=== PATIENT | female | born 1965 | race Caucasian/White ===

== ENCOUNTER 2016-09-21 05:59 | Inpatient (IN) | payer OTHER ==
--- NOTE | 2016-09-10 15:04 | PCM.ANEPRE ---
Anesthesia Pre-Op Review Reason for Review: SURGEON'S REQUEST "BMI>45;S/P RT UPPER LOBE PART. LOBECTOMY W/ RECENT PFT" Anesthesia Recommendations: Proceed with Procedure Additional Comments high BMI for two level ACDF. History of lobectomy FEV1 post over 3 liters( hard to read) STOP BANG 11/22 Alfonso Enriquez MD Sep 10, 2016 15:04
--- NOTE | 2016-09-20 12:04 | PCM.HPSURG ---
Subjective Date of Service: Sep 06, 2016 Referring Provider: Admitting Physician: Primary Care Physician: Nopcp Attending Physician: Beau Leon MD Chief Complaint SEE BELOW History of Present Illness Patient: Natalie Bosch Date of : 1965 Visit Type: Pre Op Visit Date: 09/06/2016 10:45 AM This 51 year old female presents for Preop C5-7 ACDF Carbon or Allograft, OsteoAMP and & Plate. History of Present Illness: 1. Preop C5-7 ACDF Carbon or Allograft, OsteoAMP, & Plate Natalie Bosch is a 51 year old female referred by Primary Care Provider (PCP ) Dr. Ping Hammer M.D. who presents today's date 09/06/2016 for a preoperative type of appointment concerning the decision for surgery involving C5-6 & C6-7 anterior cervical discectomy and fusion with allograft bone or carbon cage graft, OsteoAmp, & anterior cervical plating from C5-7 secondary to a diagnosis of cervical radiculopathy with related complaints of severe, intractable, and debilitating neck pain radiating into the left upper extremity of numbness, & paresthesias. Patient last presented for evaluation with Dr. Beau Leon M.D. on 2016 complaining of persistent neck left scapula and arm pain. Patient's symptoms started about 5 months ago and has continued to persist despite a long period of conservative treatment including physical therapy. Patient's pain will radiate into the scapula into the biceps and forearm but not extending into the fingers. She denies any symptoms on the right side. She feels weaker on the left side but is not been progressive. She has continued to work despite the pain and also has a diagnosis of left carpal tunnel syndrome. She has not had a recent changes in bladder or bowel dysfunction or difficulty walking. Recent MRI scan demonstrates evidence of disc herniation at both C5-6 and C6-7 with associated severe foraminal stenosis. About a week ago patient also began to have increasing lower back and right leg pain which radiates into the anterior thigh. She is here today for evaluation regarding her current symptoms. Our clinic is in network for the patient. According to Dr. Beau Leon M.D. the patient has left C6 & C7 radiculopathy secondary to herniated disc & osseous foraminal narrowing at C5-6 & C6-7 which has failed extensive conservative treatment recommending neurosurgical cervical decompression, fusion, & instrumented stabilization. Dr. Leon & the patient discussed all the risks and benefits associated with the procedure as well as reasonable expectations with regards to surgical outcomes & the patient elected to proceed with surgery as planned. 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 The patient's related complaints have been a serious detriment to their happiness and activities of daily living. Having failed conservative treatment the patient presents today for their decision for surgery appointment involving C5-6 & C6-7 anterior cervical discectomy and fusion with allograft bone or carbon cage graft, OsteoAmp, & anterior cervical plating from C5-7 for treatment of cervical radiculopathy; related to severe, intractable, and debilitating neck pain radiating to left upper extremity with numbness, & paresthesias. The procedure is scheduled to be performed by Dr. Beau Leon M.D. on 09/21/2016. ANESTHESIA NOTE: We are requesting anesthesia preoperative consultation secondary to BMI > 45 with comorbidities including but not limited to status post right partial upper lobectomy & benign tumor removal with recent PFT for review. Medical/Surgical/Interim History Reviewed, no change. Last detailed document date:09/06/2016. Family History: Reviewed, no changes. Last detailed document date:09/06/2016. Social History (Reviewed, updated) 09/06/2016 Tobacco use reviewed. Preferred language is Yi. 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 Smoking status: Never smoker. Smoking Status Use Status Type Smoking Status Years Used Total Pack Years no/never Never smoker Allergies: Ingredient Reaction Medication Name Comment NO KNOWN ALLERGIES Reviewed, no changes. Review of Systems System Neg/Pos Details Neuro Positive Headache. MS Positive Myalgia, Neck stiffness. Negative Dysuria, urge incontinence and urinary incontinence. ENMT Negative Hearing loss. Arnulfo/Lymph Negative Blood clots. Psych Negative Anxiety and depression. Eyes Negative Double vision and vision loss. MS Negative Back pain, bone/joint symptoms and muscle weakness. Neuro Negative Dizziness and seizures. Integumentary Negative Mrsa and rash. Endocrine Negative Weight gain and weight loss. Respiratory Negative Dyspnea, apnea and wheezing. Cardio Negative Chest pain, irregular heartbeat/palpitations, leg swelling and pacemaker. GI Negative Abdominal pain, constipation, diarrhea, nausea and vomiting. Constitutional Negative Chills and fever. Vital Signs Height Time ft in cm Last Measured Height Position % 10:37 AM 5.0 4.75 164.47 08/03/2016 Weight/BSA/BMI Time lb oz kg Context % BMI kg/m2 BSA m2 10:37 AM 278.40 126.280 dressed with shoes 46.68 2.40 Blood Pressure Time BP mm/Hg Position Side Site Method Cuff Size 10:37 AM 142/98 sitting left wrist automatic adult Temperature/Pulse/Respiration Time Temp F Temp C Temp Site Pulse/min Pattern Resp/ min 10:37 AM 97.7 36.5 116 regular Pain Scale Time Pain Score Method 10:37 AM 8/10 Numeric Pain Intensity Scale Measured By Time Measured by 10:37 AM Mauricio Rodgers MA Screening Summary:o Pain is described as 8/10. Evaluated pain score with Numeric Pain Intensity Scale. The following were reviewed: tobacco use, alcohol use and caffeine use Physical Exam Exam Findings Details Comments Gen.: Well-developed well-nourished HEENT: Palpation of the neck reveals evidence of involuntary paraspinous muscle spasm. There is decreased range of motion of the neck. Positive Spurling sign the left. Chest: Clear to percussion and auscultation. Cardiovascular: Regular rate and rhythm Abdomen: Soft nontender with normal bowel sounds. Extremity: 5/5 strength in the upper and lower extremities except for some give way weakness of biceps on the left as compared to the right. Patient has numbness in both the C6 & C7 distribution. There is diminished biceps and triceps. Some left-sided screw of the right. Radiographic imaging:Patient's MRI scan shows some multilevel degenerative disks. There is a right posterolateral disc protrusion at C3-4 as well as C4-5 with associated foraminal narrowing C5-6 and C6-7 there is moderate sized broad- based posterior disc bulge with superimposed left paracentral disc protrusion which extends into the left C6C& C7 neural foramen Assessment/Plan # Detail Type Description 1. Assessment Cervical radiculopathy (M54.12). 2. Assessment Preoperative examination (Z01.818). Patient Plan We including your Attending Surgeon have discussed the risks and benefits associated your scheduled procedure which you have verbally acknowledged understanding including but not limited to the possibility of an outcome that we are unable to predict or was not mentioned. 1. You are scheduled for a C5-6 & C6-7 anterior cervical discectomy and fusion with allograft bone or carbon cage graft, OsteoAmp, & anterior cervical plating from C5-[address] Beau Leon M.D. at [facility] on 09/21/2016. 2. Check in time is 6 AM. Also please ignore instructions below if told otherwise by your preadmission nurse or if you do not take the medications listed below. 3. Nothing to eat after midnight the night before surgery. You may take all of your "approved" medications with small sips of water. Remember to take your a.m. hypertension medication if it is a beta forest and ends in "olol. Otherwise ask your doctor if you need to hold your a.m. hypertension medication. 4. No aspirin, ibuprofen, Naprosyn, or other NSAIDs starting 7 days prior to surgery. 5. Please stop Warfarin/Coumadin or other blood thinners such as Plavix, Aggrenox, or Xarelto 7 days prior to your surgical procedure and follow specific instructions from your prescribing provider. 6. Please stop Lovenox bridging in the morning one day prior to procedure. 7. Please stop Suboxone/Buprenorphine at least 4 days prior to procedure. 8. Go to the hospital today to get her preoperative testing done. Take the order form to the surgery desk on the second floor of the hospital, [facility] (main entrance next to the emergency entrance). I will notify you if there is any test results that require further workup prior to surgery. 9. Follow the instructions you were given today, use the cleansing cloths the night before as well as the morning of her surgery. 10. If you are prescribed inhalers, CPAP or BiPAP machines you use at home bring along with you to the hospital. 11. ONLY If you take medications for Diabetes: If you have an insulin pump continue lowest (typically night-time) basal rate into the a.m. If you do not have a pump check h your a.m. blood sugar and hold insulin if BS less than 100. If you are taking long-acting, intermediate acting (NPH) or 70/30 preparation : Take half on day of procedure. If you are taking ultra long-acting insulin such as glargine, Lantus either at night or in the a.m. continue as scheduled ( including day of surgery). If you take short acting regular insulin (insulin not delivered via pump) discontinue on day of procedure. 12. Please call if you have any questions before your surgery: [phone]. Today's instructions/counseling include(s) Pre-operative instructions given to the patient and or legal appeals representative(s) orally and in writing. 13. Our office will contact you if there are any test results that require further workup prior to surgery. Provider Plan The patient's history and examination as well as radiological findings were reviewed with Dr. Beau Leon M.D. and conveyed the patient in detail. The findings are consistent with cervical radiculopathy and are most likely the cause of the patient's severe, intractable, & debilitating neck pain radiating to the left upper extremity with numbness, & paresthesias. The patient has failed extensive conservative treatment for this condition. The treatment options were discussed with the patient. The options include attempt to live with the condition, reattempt conservative treatment, try a pain management intervention / injection or consider a surgical intervention. We are not extremely optimistic that further conservative treatment, pain management intervention and/or injection will adequately resolve the patient's symptoms of severe, intractable, and debilitating neck pain radiating to the left upper extremity with numbness, & paresthesias. Therefore we recommend C5-6 & C6-7 anterior cervical discectomy and fusion with allograft bone or carbon cage graft, OsteoAmp, & anterior cervical plating from C5-7. The patient was provided/offered educational materials pertaining to their diagnosis and the above discussed procedure. We discussed the risks and benefits associated with this surgery. A spine model was used to explain the nature of this type of surgery. The risk of the required anesthesia was also mentioned including but not limited to organ failure such as heart attack, pneumonia and stroke even . The risk of this type of surgery was also mentioned. Including but not limited to an unsuccessful outcome, residual symptoms, odynophagia, dysphasia or sore throat, referred or radiating posterior spinal myofascial inflammatory pain or spasm, post operative instability, instrumentation failure, sensory changes, blood loss, blood clots, wound infection, spinal cord or nerve damage, CSF or lymph leak, damage to neighboring structures such as the recurrent laryngeal nerve, perforation of the esophagus or trachea, pseudoarthrosis, adjacent level disease, contraindication to MRI, Caro's Syndrome, vision loss, voice change, resulting in temporary or permanent dysfunction, even disability, paralysis, and . The recovery of this type of surgery was also mentioned. The chances for improvement of the left upper extremity cervical radiculopathy related symptomatology at one year is 70-80%. The chances of improvement of local mechanical neck pain is 50%. The patient verbalized understanding all the risks and benefits, knowing that it is impossible to predict or guarantee every surgical outcome; and would like to proceed with the above discussed procedure anyways. Surgery is scheduled for 09/21/2016 The standard [facility] preoperative screening tests, medicine restrictions, and logistical protocols apply. Any preoperative testing is within normal limits to undergo the above discussed procedure unless otherwise noted in the medical record. ANESTHESIA NOTE: We are requesting anesthesia preoperative consultation secondary to BMI > 45 with comorbidities including but not limited to status post right partial upper lobectomy & benign tumor removal with recent PFT for review. Medications (added, continued or stopped this visit): Start Date Medication Directions Stop Date buspirone take 1 tablet by oral route 2 times every day Celebrex take 2 capsule by oral route 2 times every day cyclobenzaprine take 1 tablet by oral route every bedtime FISH OIL lansoprazole take 1 capsule by oral route every day before a meal levothyroxine take 1 tablet by oral route every day Lexapro take 1 tablet by oral route every day 08/03/2016 Medrol (Daniel) 4 mg tablets in a dose pack take per package instructions naratriptan take 1 tablet by oral route once may repeat after 4 hours nortriptyline take 3 capsule by oral route every day 09/20/2016 Percocet 10 mg-325 mg tablet take 1 - 2 tablet by oral route every 4 - 6 hours as needed for pain Percocet 5 mg-325 mg tablet take 1 tablet by oral route every 6 hours as needed simvastatin take 1 tablet by oral route every day in the evening sucralfate take 1 tablet by oral route 4 times every day on an empty stomach 1 hour before meals and at bedtime 09/20/2016 Valium 5 mg tablet take 1 - 2 Tablet by oral route every 8 hours as needed for spasm Vitamin D3 zolpidem take 1 tablet by oral route every day at bedtime Counseling/Educational Factors: Counseling / educational factors reviewed. Counseling / educational factors reviewed. This is a visit of 60 minutes. 50 minutes were spent counseling. This document may have been created using voice recognition software or other electronic means and may contain inadvertent vp treasurer errors. Provider: Richmond CHAHAL 09/06/2016 12:57 PM Document generated by: Richmond Gabriel 09/06/2016 12:57 PM CC Providers: Ping Hammer [facility] [address] [place] [id number] , [place] [address] w mily Crane s r c l i n i c s . o r g NDUMS APPEAR ON FOLLOWING PAGE Addendum(Richmond Gabriel) 09/20/2016 11:59:47 AM Patient had a positive urinalysis & culture for strep ordered course of amoxicillin will repeat urinalysis culture if indicated day of surgery. Allergy Allergies: Uncoded Allergies: COUGH SYRUP (Allergy, Unknown, UNKNOWN, 09/09/16) Social History Hx Alcohol Use: No Hx Substance Use: No PMH HEENT History History of ENT Problems?: Yes HEENT History: Positive for:: Dysphagia Sinus Problem (S/P SINUS SURGERY) Cardiovascular History History of Heart Problems?: Yes Cardiovascular History: Denies:: Heart Murmur Hypertension (HYPERLIPIDEMIA) Respiratory History of Respiratory Problem: Yes Respiratory History: Positive for:: Chest Surgery (S/P RT UPPER PARTIAL LOBECTOMY FOR BENIGN TUMOR) Dyspnea (FREITAS,SOB PFT'S 08/2016 ESSENTIALLY WNL) Denies:: Use of C-PAP Machine Neurological History Hx Neurologic Problems?: Yes Neurological History: Positive for:: Headaches Other Neurological History: HX CHRONIC PAIN MANAGEMENT Gastrointestinal History HX of GI Problems?: Yes Gastrointestinal History: Positive for:: Gastroesphageal Reflux (HX PUD) Other GI Pertinent History: OBESITY C/OF DIARRHEA/CONSTIPATION W/ HX OF BOWEL INCONTINENCE Genitourinary History Hx of Gu Problems?: Yes Genitourinary History: Positive for: Kidney Stones (HX OF) Female/Male History Reproductive History Female: Denies: Currently ? (S/P D&C X3,ABLATION) Skin History Skin History: Denies:: History Skin Disorders? Pressure Ulcers Musculoskeletal History Hx Musculoskeletal Problems?: Yes Musculoskeletal History: Denies:: Back Injury (C/OF NECK & BACK PAIN) Psycho Social History Hx of Psycho/Social Problems?: Yes Psycho Social History: Positive for:: Anxiety Hx Depression Other History Hx Any Other Health Problems?: Yes Other History: Positive for:: Thyroid Disease Denies:: Cancer Endocrine Disease Hospitalization Diabetes: No Social History Hx Alcohol Use: NoHx Substance Use: No Richmond Gabriel PA-C Sep 20, 2016 12:04
[2016-09-21] VITALS (17 sets, daily range): BP systolic 126–161; BP diastolic 43–96; PULSE 110–119; RESP 10–18; O2SAT 91–99
[~2016-09-21] VITALS: Ht 164.5 cm; Wt 126.1 kg
[2016-09-21] MEDS: Lactated Ringer's 1,000 ML IV SCH ×5 (05:00→19:47)
[~2016-09-21 05:59] MED LIST: AMOX500C2 PO; BUSP10TA2 PO; CELE400C PO; CHOL100045 PO; CYCL10TA9 PO; ESCI20TA PO; LANS30CA PO; LEVO125T6 PO; METH4TAB PO; NAPR500T5 PO; NARA2.5T2 PO; NORT75CA PO; OMEG-38 PO; OXYC-466 PO; SIMV20TA4 PO; ZLP5T PO
[2016-09-21] MEDS ORDERED: Bacitracin 50,000 unit Inj IRRIGATION ONE ×2 (06:00→08:26)
[2016-09-21] MEDS ORDERED: CeFAZolin Inj 3 GM in IV Premix IV ONE (06:00)
[2016-09-21] MEDS ORDERED: Thrombin Powder 5,000 Unit TOPICAL ONE ×2 (06:00→08:26)
[2016-09-21] MEDS ORDERED: OXYC1TAB24 PO (06:43)
[2016-09-21] MEDS ORDERED: HYDR-4003 PO (06:44)
[2016-09-21] MEDS ORDERED: Lactated Ringer's 1,000 ML IV SCH (07:31)
[2016-09-21] MEDS ORDERED: Lactated Ringer's 500 ML IV PRN (07:31)
--- NOTE | 2016-09-21 07:31 | PCM.HPANE ---
Patient Data Date of Service: Sep 21, 2016 (0725) Surgeon Admitting Provider: Attending Provider:Beau Leon MD Primary Care Physician:Nopduane Other Provider:Joe Ly Anesthesia Reason for Visit Cervical Radiculopathy Ht/WT & BMI Height (Feet): 5 Height (Inches): 4.75 Weight (Kilograms): 126.1 Body Mass Index 46.00 Allergies Uncoded Allergies: COUGH SYRUP (Allergy, Severe, ITCHING, 09/21/16) Past Anesthesia History Anesthesia History: Positive for:: Anesthesia Reactions (PONV), Denies:: Malignant Hyperthermia Diabetes History Hx Diabetes?: No Current Bedside Blood Glucose: 110 MRSA MRSA: No Medications Home Meds Incl Beta Tone: No Reported Medications Hydrocodone-Acetaminophen 5-325 mg 1 Each Tablet1-2 Mg PO PRN #15 09/21/16 Naproxen 500 Mg Tablet.dr500 Mg PO BID PRN For Pain Ref 0 09/09/16 Zolpidem (Ambien)5 Mg Tablet5-10 Mg PO HS PRN For Insomnia Ref 0 09/09/16 Cholecalciferol (Vitamin D3) (Vitamin D)1,000 Unit Cmervsw33,000 Unit PO DAILY # 1 BOTTLE Ref 0 09/09/16 Simvastatin 20 Mg Mfprwh63 Mg PO HS Ref 0 09/09/16 Nortriptyline 75 Mg Oayjrtk50 Mg PO HS PRN PRN 09/09/16 Naratriptan 2.5 Mg Tablet2.5 Mg PO PRN MR IN 4H PRN 09/09/16 Methylprednisolone (Medrol)4 Mg Tablet4 Mg PO VARYING DOSES PRN DIRECTED Ref 0 09/09/16 Escitalopram Oxalate (Lexapro)20 Mg Cyltvf07 Mg PO DAILY 30 Days Ref 0 09/09/16 Levothyroxine 125 Mcg Jmtzai579 Mcg PO DAILY For Thyroid Replacement Ref 0 09/09/16 Lansoprazole 30 Mg Capsule.dr30 Mg PO BID #30 CAPSULE Ref 0 09/09/16 Carson-3/Dha/Epa/Fish Oil (Fish Oil 1,000 mg Softgel)1 Each Capsule6 Each PO DAILY 09/09/16 oxyCODONE-Acetaminophen 10-325 mg 1 Each Tablet1-2 Tablet PO Q4-6H PRN For Pain Ref 0 09/09/16 Cyclobenzaprine 10 Mg Ticvgg27 Mg PO DAILY PRN Spasm Ref 0 09/09/16 Celecoxib (Celebrex)400 Mg Iroikmn492 Mg PO BID #30 CAPSULE Ref 0 09/09/16 Buspirone 10 Mg Geovlc59 Mg PO BID Ref 0 09/09/16 Amoxicillin 500 Mg Ojonodu566 Mg PO TID Ref 0 09/09/16 Discontinued Reported Medications oxyCODONE-Acetaminophen 5-325 mg 1 Each Tablet1-2 Mg PO PRN #12 09/21/16 History History of ENT Problems?: Yes HEENT History: Positive for:: Dysphagia Sinus Problem (S/P SINUS SURGERY) Hx of Heart Problems?: Yes Cardiovascular History: Denies:: Heart Murmur Hypertension (HYPERLIPIDEMIA) Hx of Respiratory Problem?: Yes Respiratory History: Positive for:: Chest Surgery (S/P RT UPPER PARTIAL LOBECTOMY FOR BENIGN TUMOR) Dyspnea (FREITAS,SOB PFT'S 08/2016 ESSENTIALLY WNL) Denies:: Use of C-PAP Machine Hx Neurologic Problems?: Yes Neurological History: Positive for:: Headaches Other Neurological Pertinent: HX CHRONIC PAIN MANAGEMENT Hx of GI Problems?: Yes Gastrointestinal History: Positive for:: Gastroesphageal Reflux (HX PUD) Other GI Pertinent History: OBESITY C/OF DIARRHEA/CONSTIPATION W/ HX OF BOWEL INCONTINENCE Hx of Problems?: Yes Genitourinary History: Positive for:: Kidney Stones (HX OF) Female Hx: Denies:: Currently (POST MENOPAUSE) Skin History: Denies:: History Skin Disorders? Pressure Ulcers Hx Musculoskeletal Problems?: Yes Musculoskeletal History: Denies:: Back Injury (C/OF NECK & BACK PAIN) Hx of Psycho/Social Problems?: Yes Psycho Social History: Positive for:: Anxiety Hx Depression Hx Surgeries?: Yes (RT UPPER PARTIAL LOBECTOMY,D&C X3,ABLATION,SINUS SURGERY) Hx Any Other Health Problems?: Yes Other History: Positive for:: Thyroid Disease Denies:: Cancer Endocrine Disease Hospitalization Hx Diabetes: NoBedside Blood Glucose: 110 Hx Alcohol Use: NoHx Substance Use: NoHave You Smoked inLast 12 mo: No Stop/Bang S-Snoring: Do You Snore Loudly: No T-Tired: feel tired, fatigued: Yes O-Obsered: Observed not breath: No P-Blood Pressure: treated: Yes B- Body Mass Index > 35 kg/m2: Yes A- Age over 50: Yes N- Neck Large Circumference: Yes G- Gender Male: No CHARAN Total Score: 5 CHARAN Risk Assessment: High Risk, =/>3 Yes Risk Assessment Category Category 1A: Patient has history of documented sleep apnea, and HAS NOT received any narcotic, sedative or anesthesia administration during this stay. Category 1B: Patient has history of documented sleep apnea, and HAS received any narcotic , sedative or anesthesia administration during this stay Category 2: Patient has SUSPECTED Obstructive Sleep Apnea, and HAS received any narcotic , sedative or anesthesia administration during this stay. Category 3: Patient has SUSPECTED Obstructive Sleep Apnea and HAS NOT received narcotic, sedative or anesthesia administration during this stay. Category 4: Outpatient in Procedural Areas with known sleep apnea or who screen positive for High Risk via the STOP/BANG questionnaire. Exam Exam Vital Signs Vital Signs Date Time Temp Pulse Resp B/P Pulse Ox O2 Delivery O2 Flow Rate FiO2 09/21/16 06:25 36.5 111 18 156/77 95 Room Air General Appearance: Alert, Oriented X3, Cooperative HEENT/AIRWAY: MP 1 Lungs: Clear to Auscultation Heart: Exam Unremarkable Meds/Labs/Diagnostics Admission Meds Current Medications Lactated Ringer's (Lr) 1,000 ml @ 10 mls/hr Q24H IV Last administered on t 06:21; Start 09/21/16 at 05:00; Stop 09/25/16 at 08:59 Bedside Blood Glucose: 110 Plan Impression Patient chart reviewed, patient interviewed and anesthestic plan with risks, benefits, and alternatives discussed, and informed consent obtained. NPO Status: 2200 09/20/16 ASA Physical Status: ASA2 Mod Systemic Disease Anesthetic Plan: GA Bene/Risks/Altern/Consents: Yes HP Complete Prior to Induction: Yes Alexander Sprague MD Sep 21, 2016 07:31
[2016-09-21] MEDS ORDERED: MetoCLOpramide 5 mg/mL 2 mL Inj IVPUSH PRN (07:35)
[2016-09-21] MEDS ORDERED: EPHEDrine Sulfate 50 mg/mL Inj IVPUSH PRN (07:35)
[2016-09-21] MEDS ORDERED: Phenylephrine 10,000 mCg/mL Inj IVPUSH PRN (07:35)
[2016-09-21] MEDS ORDERED: Dexamethasone 4 mg/mL Inj IVPUSH PRN (07:35)
[2016-09-21] MEDS ORDERED: Ondansetron 2 mg/mL 2 mL Inj IVPUSH PRN ×2 (07:35→11:15)
[2016-09-21 08:22] LABS: APPEARANCE,URINE HAZY (CLEAR,HAZY); COLOR,URINE STRAW (YELLOW); OCCULT BLOOD,URINE NEGATIVE (NEGATIVE); PH,URINE 7.5 (5.0-8.0); UROBILINOGEN,URINE NORMAL (NORMAL)
[2016-09-21] MEDS ORDERED: Gelatin Sponge 12-7 MM TOPICAL ONE (08:26)
[2016-09-21] MEDS ORDERED: Lactated Ringer's 1,000 ML IV ONE (10:47)
--- NOTE | 2016-09-21 11:08 | PCM.ANEP1 ---
Post Anesthesia Phase 1 PACU Phase 1 Assessment Date of Service: Sep 21, 2016 (0725) Vital Signs 36.7, 145/71, 16, 99%, 110 Vital Signs Date Time Temp Pulse Resp B/P Pulse Ox O2 Delivery O2 Flow Rate FiO2 09/21/16 06:25 36.5 111 18 156/77 95 Room Air Anesthetic Administered: GA Level of Alertness: Awake, talking FLORES's with Equal Strength: Yes Pain: No Nausea or Vomiting: No Oxygen Delivery: Simple Mask Lungs: Clear to Auscultation Dermatome Level: Full Sensation Summary Uneventful Alexander Jimenez MD Sep 21, 2016 11:08
--- NOTE | 2016-09-21 11:09 | PCM.ANEP2 ---
Post Anesthesia Evaluation ASA/CMS Post Anesthesia VS in Patient's Normal Range?: Yes Resp Stable; Airway Patent?: Yes CV Function & Hydration Stable: Yes Mental Status Recovered?: Yes Pain control Satisfactory?: Yes N/V Control Satisfactory?: Yes Alexander Sprague MD Sep 21, 2016 11:09
[2016-09-21] MEDS ORDERED: Promethazine Inj 12.5 MG in Dextrose 5%-Pha MIX 50 ML IV PRN (11:10)
[2016-09-21] MEDS: fentaNYL-PF 50 mCg/mL 2 mL Inj IVPUSH PRN ×2 (11:10→11:20)
[2016-09-21] MEDS: Dexamethasone 4 mg/mL Inj IVPUSH SCH ×3 (11:10→23:05)
[2016-09-21] MEDS ORDERED: Senna-Docusate 8.6-50 mg Tablet PO PRN (11:15)
[2016-09-21] MEDS ORDERED: Benzocaine (Hurricaine) 20% Unit-Dose Spray MUC_MEMBRM PRN (11:15)
[2016-09-21] MEDS ORDERED: Magnesium Hydroxide 10 mL Oral Concentration PO PRN (11:15)
[2016-09-21] MEDS: Acetaminophen IV 1,000 MG in IV Premix 1 EACH IV SCH ×3 (11:15→23:06)
[2016-09-21] MEDS ORDERED: Polyethylene Glycol (PEG) 17 Gm Powder PO PRN (11:15)
[2016-09-21] MEDS ORDERED: Sodium Biphos-Phos 133 mL Enema RECTAL PRN (11:15)
[2016-09-21] MEDS ORDERED: HYDROmorphone 1 mg/mL Inj IVPUSH PRN (11:15)
[2016-09-21] MEDS: HYDROmorphone 1 mg/mL Inj IVPUSH PRN ×3 (11:30→12:40)
[2016-09-21] MEDS: hydrOXYzine Pamoate 25 mg Capsule PO PRN ×2 (12:15→21:40)
--- NOTE | 2016-09-21 12:31 | DRSVH ---
PROCEDURE: X-RAY CERVICAL SPINE, 1 VIEW INDICATIONS: CERVICAL RADICULOPATHY TECHNIQUE: Single lateral view of the cervical spine acquired. COMPARISON: None. FINDINGS: Bones: Radiopaque surgical probe present projecting over the anterior disc interspace at the C4-C5 le evelyn. Soft tissues: ETT and nasogastric tubes incompletely visualized. IMPRESSION: Localization of the anterior disc interspace at the C4-C5 level. Dr. Leon given results of 0840 hrs. 09/22/1999 1700 Dictated by: Omar Subramanian [facility] Interpreted: Tatyana Carter MD on 09/21/2016 at 12:30 Transcribed by: AMBER on 09/21/2016 at 12:31 Approved by: Tatyana Carter MD, PhD on 09/22/2016 at 11:03
--- NOTE | 2016-09-21 13:23 | OP ---
[address] [address] OPERATIVE REPORT PATIENT: KERI TSAI : 1965 MR#: [id number] ADMIT: 09/21/2016 JOB ID: [id number] DATE OF SURGERY: 09/21/2016 PREOPERATIVE DIAGNOSIS(ES): Persistent left cervical radiculopathy secondary to cervical spondylosis and severe foraminal narrowing, C5-6 and C6-7. POSTOPERATIVE DIAGNOSIS(ES): Persistent left cervical radiculopathy secondary to cervical spondylosis and severe foraminal narrowing, C5-6 and C6-7, with associated cervical spinal stenosis. OPERATIONS/PROCEDURES: 1. Microscopic anterior cervical diskectomy and removal of osteophytosis and bilateral foraminotomy, C5-6 and C6-7. 2. Anterior body fusion, C5-6 and C6-7, using autologous bone graft, OsteoAMP, bone marrow aspiration and carbon cages. 3. Villa cervical plate and screws, C5-C7. 4. Bone marrow aspiration, right superior iliac crest. SURGEON: Beau Leon MD. PRODUCTION LINE WORKER: Richmond Gabriel PA-C. ANESTHESIA: General endotracheal. COMPLICATIONS: None. ESTIMATED BLOOD LOSS: Approximately 50-75 cc. DRAINS: A #10 [place] drain. BLOOD TRANSFUSION: No blood transfusion. FINDINGS AT THE TIME OF SURGERY: There was evidence of osteophytosis and foraminal narrowing more severe on the left than the right at C5-6 and C6-7. Decompression of the central canal, as well as bilateral foraminotomies, performed. After decompression, only 0 angle curette could be placed at each neural foramina. There was no evidence of any CSF leak or neurotomy. Anterior interbody fusion was performed using ramon cages, autologous bone graft, OsteoAMP and bone marrow aspiration. Vlila cervical plates and screws were placed between C5 and C7. Postoperative intraoperative x-rays could not be obtained because of the patient's large body habitus. They will be obtained in X-ray tomorrow. INDICATIONS: This is a 51-year-old female who has been having persistent neck and left arm pain, and numbness and tingling. The patient has undergone a long period of conservative therapy and continued to have persistent symptoms. The patient was subsequently seen for a neurosurgical evaluation. Option of surgery was discussed with the patient after failing conservative measures. The patient subsequently elected to proceed with surgery and admitted at this time for an anterior cervical diskectomy and fusion at C5-6 and C6-7. The indications, risks and complications of the procedure were explained to the patient on her preop visit. She acknowledged understood and wanted to proceed. DESCRIPTION OF OPERATION/PROCEDURE: The patient was identified in the preop area. The C5-6 and C6-7 levels were marked on the patient's anterior chest. The patient's history, examination, medications, allergies and labs were reviewed. She was then taken to the operating room, where she underwent general endotracheal anesthesia without complication. She received 2 g of intravenous Ancef. TESSY was placed on the lower extremities. The patient was placed in a supine position on the operating table with a shoulder roll and gel donut. The patient's extremities were properly padded and positioned. The shoulders were gently taped to her side. Right anterior cervical area, as well as right superior iliac crest region, were then prepped and draped in the usual sterile fashion for anterior cervical diskectomy and fusion at C5-6 and C6-7. After the proper prepping and draping, the appropriate time-out in the OR was performed, confirming the patient's name, date of , planned procedure and presence of appropriate instrumentation. The patient's CHARAN, beta block, diabetic and MRSA status were reviewed. Antibiotic administration, DVT prophylaxis and appropriate imaging on the screen was confirmed. The skilled assistance of the IRIS-Alanis, Richmond Gabriel, was necessary for the successful completion of the case. He was essential for proper postioning, retraction if the esophagus and trachea, as well as general safety of the patient. After time-out was completed, a curvilinear incision was made in the neck on the right side and carried down through the skin and subcutaneous tissue, down to the level of the platysma. The platysma was opened using Bovie cautery, exposing the sternocleidomastoid and strap muscles. There was a large bridging vein. This was carefully dissected, clamped with hemostats and cut. It was then sutured using 0 Vicryl suture. At that point, blunt and sharp dissection between the two muscle groups was undertaken, with subsequent identification of the common carotid artery. Medial dissection was undertaken. The esophagus and trachea were retracted using Appy retractor, exposing the anterior aspect at what was felt to be C5-6 and C6-7. Dissection was carried out superiorly and inferiorly, and bent spinal needles were then placed into the disk space at C4-5 and C5-6 because of the patient's large body habitus. Intraoperative x-rays were obtained, verifying that the upper needle was at the C4-5 level. Position was verified by the radiologist and myself. Once it was verified, subperiosteal dissection of the longus colli muscle was undertaken. The C5-6 and C6-7 levels were marked using a Bovie cautery. A Shadow-Line anterior retraction system was placed, allowing full exposure of the anterior aspect of C5-6 and C6-7. Attention was then directed to the right iliac crest region. A small abhijit incision was made using a 15 blade knife. Bone marrow aspiration was then tapped in the superior iliac crest. Approximately 1 cc of bone marrow aspirate was obtained and mixed with the OsteoAMP. Starting at C5-6, 14 mm vertebral pins were then placed in the vertebral bodies of C5, 6 and 7. Starting at C5-6, this space was maximally distracted. It was then opened using a 15 blade knife. Operating microscope was brought in place. Routine diskectomy was performed using angled curettes, high speed drill and Kerrison rongeur. Autologous bone graft was obtained from the shavings and mixed with the OsteoAMP. Because of the extensive posterior osteophytosis and severe foraminal narrowing left greater than right, bilateral foraminotomies was performed after decompression. Only a 0 angle curette could be placed down each neural foramina. Bolsters were thinned down and removed using angled curettes and Kerrison rongeur. The disk space was sequentially dilated using the trials up to 8 mm. Posterior longitudinal ligament was taken down using curettes and Kerrison rongeur, exposing the thecal sac, which bulged into the disk space. This was then covered with Surgicel gauze after hemostasis was achieved. A #8 rasp was then tapped into the disk space and a #8 cage filled with autologous bone graft of OsteoAMP and bone aspiration was then tapped into the interspace and countersunk at C5-6. Exploration posterior to the graft using a blunt nerve hook revealed good potential space. Distraction instrumentation was removed and placed at C6-7. Diskectomy was performed in a similar fashion, opening the disk space using a 15 blade knife. Routine diskectomy was performed using angled curettes, high speed drills and Kerrison rongeur. Sequential dilation was undertaken until an 8 mm trial was fitted for the disk space. Bilateral foraminotomies were performed, as well as decompression of the central canal. Posterior longitudinal ligament was taken down using curettes and Kerrison rongeur, exposing the thecal sac. This was then covered with Surgicel gauze. A #8 rasp was then tapped in the disk space and a #8 cage filled with autologous bone graft with OsteoAMP and bone marrow aspiration was then tapped into the interspace and countersunk at C6-7. Exploration posterior to the graft revealed good potential space. Distraction instrumentation was removed. Both grafts appeared to be in excellent position. Vertebral pins removed, and bone bleeding was controlled using bone wax. Anterior osteophytes were drilled down and flattened. A Villa cervical plate was then placed between C5 and 7, and secured using 14 mm vertebral screws using the guide and drill. All four screws with excellent purchase. Then, 12 mm screws were placed in the deep body of C6. Once all the screws were placed, they were then tightened using the final ancillary specialist until titanium squeak was heard. The spacers were removed. Careful hemostasis was achieved using 2-point cautery. The wound was irrigated with bacitracin-containing saline. The construct was covered with a large piece of Surgicel gauze. The instrumentation was removed, and re-exploration was undertaken using an Appy retractor. There was no further evidence of any major oozing. A #7 ORVILLE drain was placed deep into the wound and brought out through a separate stab incision and connected to bulb suction. Because of the patient's large body habitus, attempt was not made to do a second intraoperative x-ray since C5-6 and C6-7 could not be visualized. Once the drains were in place, the platysma and subcutaneous layer were then closed using running 3-0 Vicryl suture, and the skin was then closed using 4-0 Vicryl suture in a subcu fashion. The incision was then dried and cleaned. This was followed by Steri-Strips. There was covered with a sterile Telfa dressing and secured using Benzoin and paper tape. A drain dressing was applied. Attention was then paid to the right superior iliac crest region. The small abhijit incision was closed using Benzoin and Steri-Strip. There was then covered with a Telfa dressing and 3-inch OpSite. A 3-inch soft collar was applied. The patient was then transferred to a stretcher, awakened, extubated and taken to the PAR in stable condition. The patient tolerated the procedure well without any major complications. All sponge and needle counts were correct x2. Estimated blood loss probably 50-75 cc.
[2016-09-21] MEDS ORDERED: Ondansetron 2 mg/mL 2 mL Inj ONE ×2 (14:00→18:09)
[2016-09-21] MEDS ORDERED: Propofol 10,000 mCg/mL 20 mL Inj ONE ×2 (14:00→18:09)
[2016-09-21] MEDS ORDERED: fentaNYL-PF 50 mCg/mL 2 mL Inj ONE (14:00)
[2016-09-21] MEDS ORDERED: Dexamethasone 4 mg/mL Inj ONE ×2 (14:00→18:09)
--- NOTE | 2016-09-21 15:00 | NUR ---
Post op Pt arrived to [facility] at 1325 in bed, soft collar in place, ORVILLE draining Sero-Sanguinous fluid. Dressing C/D/I Heart rate 113, MD aware. SCDs on, pt stated pain was 7/10, administered PO Valium right away. will continue to work on pain control.
[2016-09-21] MEDS ORDERED: CeFAZolin Inj 3 Gm/ D5W 50 mL Bag IV SCH (16:30)
[2016-09-21] MEDS ORDERED: Rocuronium 10 mg/mL 5 mL Inj ONE (18:09)
[2016-09-21] MEDS: Benzocaine-Menthol Lozenge 2/Pkg PO PRN (18:43)
--- NOTE | 2016-09-21 19:28 | PCM.CHPMED ---
Subjective Date of Service: Sep 21, 2016 Provider requesting consult: Beau Leon MD Primary Physician: Admitting Physician: Beau Leon MD Primary Care Physician: Nopcp Attending Physician: Beau Leon MD Chief Complaint: Chief Complaint: Tachycardia History of Present Illness: 51-year-old female postop day 0 status post C5-6 & C6-7 anterior cervical discectomy and fusion with allograft bone or carbon cage graft, OsteoAmp, & anterior cervical plating from C5-7 secondary to a diagnosis of cervical radiculopathy with related complaints of severe, intractable, and debilitating neck pain radiating into the left upper extremity with numbness, & paresthesias. Upon arrival to the surgery this morning patient's heart rate was noted to be elevated at 111 BPM. Throughout surgery and postoperatively her heart rate has continued to be elevated up to 126 during the time of our examination. Patient reports 7-8/10 pain in her neck. But states that it is acceptable to her. During preoperative EKG on September 06 patient's heart rate was noted to be 103. Per patient report it is typically resting in the 80s to 90s however during physical therapy within the last year she has had heart rates up to 150 that have come back down with rest. Patient will occasionally have chest pain or reflux symptoms that she gets discomfort in her throat for however she is not currently having either these. She has no pleuritic pain, some difficulty swallowing, and constipation exacerbated by the recent use of opioid pain medication to treat her neck pain. She has no personal history of DVT or PE, and no recent travel. Her PCP changed her levothyroxine dose 1 month ago to 125 down from 150 g. Patient does report sleeping propped up with 2-3 pillows and shortness of breath climbing stairs however this has been consistent since her lung resection one year ago for a benign nodule in the right upper lobe. PMH Past Medical History Benign right upper lobe lung tumor Morbid obesity History of nephrolithiasis Nausea with anesthesia Hypothyroidism History of GERD Chronic joint pain with chronic pain management Frequent headaches Depression and anxiety Migraines Genitourinary History: Positive for: Kidney Stones Psycho Social History: Positive for:: Anxiety Hx Depression Skin History: Positive for:: Pressure Ulcers Bedside Blood Glucose: 110 Surgical History Cervical discectomy C5 to 6 and C6 to 7, anterior body fusion with bone graft and cervical plate and screws C5 to 7 Dilation and curettage 3 Ablation Sinus surgery Resection of benign right upper lobe lung tumor Home Medications 1. Buspirone 10 mg by mouth twice a day 2. Celecoxib 400 mg by mouth twice a day 3. Vitamin D3 10,000 units by mouth daily 4. Cyclobenzaprine 10 mg 5. Citalopram 20 mg by mouth daily 6. [place] 5-325 one to 2 mg by mouth when necessary 7. Lansoprazole 30 mg by mouth twice a day 8. Levothyroxine 125 g by mouth daily 9. Medrol Dosepak 4 mg as directed 10. Naproxen 500 mg by mouth twice a day 11. By mouth when necessary 12. Nortriptyline 75 mg by mouth at bedtime when necessary 13. Fish oil, 6000 mg by mouth daily 14. Percocet 10-325 by mouth every 4-6 when necessary pain 15. Simvastatin 20 mg by mouth daily at bedtime 16. Ambien 5-10 mg by mouth daily at bedtime when necessary insomnia Allergies: Uncoded Allergies: COUGH SYRUP (Allergy, Severe, ITCHING, 09/21/16) Family History Family History Blood clots, one brother currently has pulmonary embolism and sister had DVT in the past Multiple sclerosis in Sister and grandfather Fibromyalgia in a different sister. 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 Alcohol Use: NoHx Substance Use: NoHx Tobacco Use: No Living Arrangement: with Family Exam Vital Signs Vital Sign - Last Date Time Temp Pulse Resp B/P Pulse Ox O2 Delivery O2 Flow Rate FiO2 09/21/16 14:10 115 18 98 Nasal Cannula 2.50 09/21/16 13:23 36.7 161/96 General: Alert, Oriented X3, Cooperative, No Acute Distress Head: Normal Eyes: PERRLA Mouth: Mouth Normal Neck: Other (soft collar with clean dry dressing and drain on upper chest) Chest & Lungs: Chest Wall Normal, Diminished breath sounds (mildly, and right upper lobe otherwise clear to auscultation) Back, Sacral Area and Buttocks: Normal (right superior surgical scar) Cardiovascular: No Murmurs/Rubs/Gallops, Other (tachycardic, regular rate) Abdomen: Non-tender, Non-distended, Normoactive bowel tones Extremities: Normal bilaterally, Other (no swelling, erythema, or tenderness to palpation. Homans sign negative bilaterally) Skin: Significant Lesions (erythematous papules on lower abdomen, healing) Neurological: Grossly Neurologically Intact Lab and Diagnostics 12-lead ECG Preoperative EKG on 09/06/2016 showed sinus tachycardia with a rate of 103 Assessment & Plan Assessment 51-year-old female status post cervical spine surgery with tachycardia 1. Sinus tachycardia, present on admission, subacute -Patient's heart rate on the EKG 09/06/2016 was 103. On admission to day surgery the morning of admission heart rate was 111, during her exam heart rate was 126. -Differential diagnosis includes thyroid dysfunction, pulmonary embolism, anemia , pain, anxiety -Laboratory evaluation including CBC, CMP, d-dimer, TSH, free T4 ordered. -Consider CT chest angiogram for pulmonary embolism if d-dimer elevated. -Laboratory evaluation reveals no signs of anemia, no electrolyte abnormalities , and normal d-dimer. -Tachycardia most likely related to stress of surgery, heightened physiologic state, pain despite patient's reassurance that 7/10 pain is acceptable to her. -Recommend continued monitoring, if patient develops chest pain or acute shortness of breath CT chest angiogram could be reconsidered. 2. Acquired Hypothyroidism, present on admission, well controlled -Patient developed hypothyroidism after delivery of her third child. She had been on a dose of 150 g levothyroxine which was decreased to 125 one month ago. -Current labs are use are TSH 0.592, free T4 1.13 -Though these values are in the normal range we recommend continued outpatient follow-up as dose may need to be further decreased with the goal of TSH closer to the upper limit of normal and free T4 closer to the lower limit of normal for better heart rate control. 3. Leukocytosis, acute -Laboratory evaluation revealed an elevated white blood cell count likely secondary to surgery and dexamethasone -Recommend recheck prior to departure to assure this is down trending as expected. Thank you for the opportunity to consult on this case. Problems: Pain Evaluation: Adequate Pain Control Resuscitation Status: CPR: Attempt Resuscitation Attending Statement The patient was seen and examined together with Dr. Calderon on 09/21 and I agree with the history, exam and plan as outlined in the note above. copies to: Beau Leon MD; Richmond Gabriel PA-C, Erika R DO Sep 21, 2016 19:28 Delano Choe MD Sep 22, 2016 00:57
[2016-09-21 21:18] LABS: BASOPHILS % (AUTO) 0.1 % (0-3); EOSINOPHILS % (AUTO) 0.1 % (0-5); MONOCYTES % (AUTO) 1.6 % (4-12); Mean Corpuscular Hemoglobin 28.1 pg (27.0-35.0); Mean Corpuscular Volume 86.7 fL (81-100); NEUTROPHILS % (AUTO) 93.7 % (40-74); Platelet Count 253 bil/L (150-400)
[2016-09-21] MEDS: Senna-Docusate 8.6-50 mg Tablet PO SCH (21:39)
[2016-09-21] MEDS: BusPIRone 15 mg Dividose Tablet PO SCH (21:40)
[2016-09-21] MEDS: CeFAZolin Inj 3 GM in Dextrose 5% 50 ML IV SCH (23:05)
[2016-09-22 00:02] VITALS: BP 128/71; PULSE 115; RESP 20; O2SAT 97
--- NOTE | 2016-09-22 02:58 | NUR ---
Pain/activity Pt reports px 7/10 at best, PRN oxycodone and vistaril being used. Pt states she has a high tolerance to px and reports Pt doesn't always say when she is hurting. Pt ambulating to BR with SBA, 0 c/o NV. ORVILLE drain in place, draining seruos fluid, Dressing CDI, cervical collar in place
[2016-09-22] MEDS: hydrOXYzine Pamoate 25 mg Capsule PO PRN ×4 (04:12→17:45)
--- NOTE | 2016-09-22 04:22 | NUR ---
Heart rate Pt heart rate 110-125 this shift. Asymptomatic and MD aware. Continuous pulse ox.
[2016-09-22 04:24] VITALS: BP 145/87; PULSE 113; RESP 18; O2SAT 96
[2016-09-22] MEDS: CeFAZolin Inj 3 GM in Dextrose 5% 50 ML IV SCH (04:44)
[2016-09-22] MEDS: Dexamethasone 4 mg/mL Inj IVPUSH SCH ×2 (04:53→13:27)
[2016-09-22] MEDS: Acetaminophen IV 1,000 MG in IV Premix 1 EACH IV SCH ×4 (04:53→23:38)
[2016-09-22] MEDS: Lactated Ringer's 1,000 ML IV SCH ×3 (04:55→19:12)
[2016-09-22] MEDS: Benzocaine-Menthol Lozenge 2/Pkg PO PRN ×2 (05:58→13:38)
[2016-09-22] MEDS: Omega-3 Fatty Acids 1,000 mg Capsule PO SCH (08:30)
--- NOTE | 2016-09-22 09:53 | PCM.DISURG ---
Surgical Discharge Instruction Date of Service Sep 22, 2016 Dates of Hospitalization Date of Hospital Admission Sep 21, 2016 at 13:20 Providers Admitting Physician: Beau Leon MD Primary Care Physician: Nopcp Attending Physician: Beau Leon MD Discharge Diagnosis Discharge Diagnosis Status post Microscopic anterior cervical diskectomy and removal of osteophytosis and bilateral foraminotomy, C5-6 and C6-7, Anterior body fusion, C5-6 and C6-7, using autologous bone graft, OsteoAMP, bone marrow aspiration and carbon cage, Villa cervical plate and screws, C5-C7 & Bone marrow aspiration, right superior iliac crest. Post Operative diagnosis Status post Microscopic anterior cervical diskectomy and removal of osteophytosis and bilateral foraminotomy, C5-6 and C6-7, Anterior body fusion, C5-6 and C6-7, using autologous bone graft, OsteoAMP, bone marrow aspiration and carbon cage, Villa cervical plate and screws, C5-C7 & Bone marrow aspiration, right superior iliac crest Additional Instructions Discharge Instructions Anterior Cervical Discectomy and Fusion What is my recovery like? The hospital stay is usually overnight. After the surgery, you might have a sore throat. This is very common due to the retraction (moving) of the esophagus and trachea. The sore throat usually resolves in 1-2 weeks. Drinking lots of fluids will help improve the symptoms. The cervical collar should be worn at night and for comfort only during the day. On your postoperative follow- up appointments, your Doctor will perform X-rays to see how well everything is healing. What are my restrictions? You should not lift anything heavier than five pounds. Avoid excessive movements of your neck until instructed specifically by your Doctor. Can I Shower? You may shower when you go home. You must remove the outside dressing on the 7th day after surgery, or change dressing as needed if soiled or saturated ( replacing new sterile gauze & water proof dressing) otherwise leave alone. The small pieces of tape (steri-strips) directly on top of the incision may get wet. The steri-strips will fall off on their own. Can I drive? No, you should not drive until specifically given permission from your Doctor in a follow up appointment. Most Patient's can drive in 2-3 weeks if they are not taking narcotic pain medications or muscle relaxers. You may ride in a car, but should avoid trips longer than two hours in duration. When can I return work / sports? Your Doctor will discuss your return to work with you on your first postoperative follow-up appointment. Most patients may return to work within 2 weeks for sedentary jobs. More physically demanding jobs may require 3-6 months of healing before such work can be considered. When should I call the doctor? You should call your Doctor or go to the Emergency Department if you develop chest pain, shortness of breath, a temperature greater than 101.5 F, severe uncontrolled pain or weakness, loss of bowel or bladder function, choking, swelling, lots or drainage, pus discharge or constipation. Instructions Regarding Comfort & Pain Medication Use: During the recovery period , even with the use of pain medication, you may experience pain at the site of surgery. You may also have the same type of pain you had before surgery. Please use your pain scale as a guide for taking your pain medication. When your pain is greater than 4 out of 10, or when your pain reaches your personal tolerable level of pain, take your pain medication as prescribed. Use your pain medication on an 'as needed' basis. This means if your pain level is within your tolerable level of pain you DO NOT need to take the medication. As you get better, you will notice you can increase the time interval between doses and decrease the number of tablets you are taking, gradually taking less and less pain medication. Taking pain medication when it is not necessary (for example when your pain is tolerable or acceptable) can result in dangerous side effects and over- sedation. Signs and symptoms of over-sedation include: drowsiness, excessive sleeping, slow or difficult breathing, slurred speech, impaired thinking, confusion, impaired motor coordination. If you have any of these symptoms stop taking the medication and immediately contact your doctor. IF SYMPTOMS ARE LIFE THREATENING CALL 911. To decrease pain and swelling, frequently apply an ice pack for 20 min intervals with at least one hour off. When to take Acetaminophen for pain? If you don't have liver problems, allergies and/or Tylenol is not in your current pain medication. Take Extra Strength Tylenol 500mg 2 tabs by mouth every 6 hours as needed for pain. DO NOT EXCEED 8 TABS PER DAY. Additional Instructions Follow-up with Primary Care Provider as soon as possible for elevated heart rate , high blood pressure, & low oxygen levels. Follow Up Plan Follow Up Plan 1. Follow-up with physician entry level assistant manager and outpatient neurosurgical clinic in 1 week for wound check. 2. Follow-up with Primary Care Provider Dr. Ping Hammer M.D. [facility] for elevated heart rate, high blood pressure, & low oxygen levels. Follow-up Provider (F9): Richmond Gabriel PA-C Additional Information Attending Statement All documentation reviewed & orders arthritis by Dr. Beau Leon M.D. Richmond Gabriel PA-C Sep 22, 2016 09:53
[2016-09-22] MEDS: Pantoprazole 40 mg ER24 Tablet PO SCH ×2 (09:58→20:54)
[2016-09-22] MEDS: Senna-Docusate 8.6-50 mg Tablet PO SCH ×2 (09:58→20:55)
[2016-09-22] MEDS: BusPIRone 15 mg Dividose Tablet PO SCH ×2 (09:58→20:54)
--- NOTE | 2016-09-22 10:04 | DRSVH ---
PROCEDURE: X-RAY CERVICAL SPINE, 1 VIEW INDICATIONS: S/P C5-7 ACDF, Cage x 2, & Plating TECHNIQUE: Single lateral view of the cervical spine acquired. COMPARISON: [facility], , XR CERVICAL SPINE 1VW, 09/21/2016, 8:02. FINDINGS: Bones: Recent ACDF C5-C6 and C6-C7 with hardware in expected position. There is mild C4-C5 disc narr owing. Soft tissues: No prevertebral soft tissue swelling. IMPRESSION: Recent multilevel ACDF. Dictated by: Omar ALEMAN Interpreted: Sivan Lynn MD on 09/22/2016 at 10:04 Transcribed by: AIDEN on 09/22/2016 at 10:04 Approved by: Sivan Lynn M.D. on 09/22/2016 at 16:37
--- NOTE | 2016-09-22 10:13 | PCM.DC.SUR ---
Discharge Summary Date of Service: Sep 22, 2016 Date of Hospital Admission: Sep 21, 2016 at 13:20 Date of Operation(s): 09/21/2016 Date of Discharge: 09/22/2016 Diagnosis at Time of Discharge Status post Microscopic anterior cervical diskectomy and removal of osteophytosis and bilateral foraminotomy, C5-6 and C6-7, Anterior body fusion, C5-6 and C6-7, using autologous bone graft, OsteoAMP, bone marrow aspiration and carbon cage, Villa cervical plate and screws, C5-C7 & Bone marrow aspiration, right superior iliac crest Problems: Operation Microscopic anterior cervical diskectomy and removal of osteophytosis and bilateral foraminotomy, C5-6 and C6-7, Anterior body fusion, C5-6 and C6-7, using autologous bone graft, OsteoAMP, bone marrow aspiration and carbon cage, Villa cervical plate and screws, C5-C7 & Bone marrow aspiration, right superior iliac crest Brief History and Physical: 51-year-old female postop day 0 status post C5-6 & C6-7 anterior cervical discectomy and fusion with allograft bone or carbon cage graft, OsteoAmp, & anterior cervical plating from C5-7 secondary to a diagnosis of cervical radiculopathy with related complaints of severe, intractable, and debilitating neck pain radiating into the left upper extremity with numbness, & paresthesias. Upon arrival to the surgery this morning patient's heart rate was noted to be elevated at 111 BPM. Throughout surgery and postoperatively her heart rate has continued to be elevated up to 126 during the time of our examination. Patient reports 7-8/10 pain in her neck. But states that it is acceptable to her. During preoperative EKG on September 06 patient's heart rate was noted to be 103. Per patient report it is typically resting in the 80s to 90s however during physical therapy within the last year she has had heart rates up to 150 that have come back down with rest. Patient will occasionally have chest pain or reflux symptoms that she gets discomfort in her throat for however she is not currently having either these. She has no pleuritic pain, some difficulty swallowing, and constipation exacerbated by the recent use of opioid pain medication to treat her neck pain. She has no personal history of DVT or PE, and no recent travel. Her PCP changed her levothyroxine dose 1 month ago to 125 down from 150 g. Patient does report sleeping propped up with 2-3 pillows and shortness of breath climbing stairs however this has been consistent since her lung resection one year ago for a benign nodule in the right upper lobe. Consultants: Dr. Bala Michel D.O & Dr. Kal Dasilva M.D. for hospitalist consultation regarding tachycardia & generalized medical clearance required for discharge status post cervical spinal arthrodesis. Hospital Course: Hospital Course: The patient was admitted through same day surgery and subsequently underwent a Microscopic anterior cervical diskectomy and removal of osteophytosis and bilateral foraminotomy, C5-6 and C6-7, Anterior body fusion, C5-6 and C6-7, using autologous bone graft, OsteoAMP, bone marrow aspiration and carbon cage, Villa cervical plate and screws, C5-C7 & Bone marrow aspiration, right superior iliac crest. The patient tolerated the procedure well. The patient was then was transferred to PACU and then to the OSC floor with mild tachycardia, occasional O2 desaturation, & hypertension. Patient has a history of lung resection & high risks for CHARAN with morbid obesity. The patient was admitted for postoperative pain control, PT/OT, supervised for about discussed co- morbidities with Hospitalist consultation & medical clearance for discharge, inpatient nurse monitoring, continuous pulse oximetry, & discharge planning. The Patient's overnight course is expected. Currently the patient has complaints of posterior cervical referred myofascial inflammatory pain/spasm & improved control with by mouth analgesics & muscle relaxants. There is significant improvement of the patient's residual cervical spinal stenosis & cervical radiculopathy symptoms especially with regards to her left upper extremity. The patient denies headache, severe sore throat or dysphagia, chest pain, shortness of breath, abdominal pain, nausea, vomiting, constipation, diarrhea, or any new onset &/or location of pain, weakness or paresthesias aside from the surgical site. PHYSICAL EXAM This is a well developed, well nourished, morbidly obese who is alert, cooperative, and appears to be in no acute distress with a pleasant affect & euthymic mood. Exam of the head is normocephalic. PERRL, EOMI, without facial droop, hearing grossly intact, nostrils patent, oral cavity and pharynx normal. Voice is within normal limits Exam or the heart reveals irregular rate and regular rhythm without audible murmurs The lungs are clear to auscultation bilaterally. The abdomen is non- tender and non-distended. Exam of the cervical surgical wound reveals that it is clean, dry, and intact; without signs of infection, inflammation, and/or hematoma. There will be a rate of output less than 30 mL from the patient's surgical drain in a 8 hour period prior to discharge. Gross exam of the extremities reveals strength & sensation are grossly intact within the patient's normal baseline limits except improve diminished sensation left C6 & C7 dermatomal distributions. The patient was eventually able to get out of bed and ambulate within acceptable limits. Therapy services made recommendations for disposition. Flatus was appreciated and the patient was able to void without significant difficulty. The pain was gradually under control. The patient was afebrile on discharge. The patient's incision(s) was clean, dry and intact. The dressing was changed to the Surgeon's specifications. The rate of output from the wound drain will be less then 30cc's in an 8 hour period prior to discharge and therefore the drain will then be removed. The patient progressed well with rehabilitation and was subsequently discharged to home in stable condition. If the patient does not meet the specific parameters detailed in the discharge order or she does not receive documented medical clearance for discharge today she will stay overnight & be reevaluated by the surgical & hospitalist team for discharge in the a.m. The patient verbally affirmed understanding when given clear instruction regarding the postoperative care and follow-up including but not limited to seeking immediate medical attention for chest pain, shortness of breath, oversedation, a temperature greater than 101.5 F, severe uncontrolled pain or weakness, loss of bowel or bladder function, choking, lots or drainage, pus discharge or constipation. All questions were answered. The patient underwent a lateral C-spine x-ray completed today 09/22/2016- IMPRESSION: Status post C5-7 anterior cervical discectomy and fusion, with cage 2, iliac crest bone marrow aspiration, osteAmp, & anterior cervical plating from C5-7 with stable fusion construct & good instrumentation alignment. Disposition: Home after medical clearance from hospitalist team & arranged follow-up with Primary Care Provider. Follow-up Plan: 1. Follow-up with physician learning and development assistant in outpatient neurosurgical clinic in 1 week for wound check. 2. Follow-up with Primary Care Provider OLEG. Amoxicillin (Amoxicillin) 500 Mg Capsule 500 MG PO TID (Reported) Buspirone (Buspirone) 10 Mg Tablet 10 MG PO BID (Reported) Cholecalciferol (Vitamin D3) (Vitamin D) 1,000 Unit Capsule 10,000 UNIT PO DAILY (Reported) Cyclobenzaprine (Cyclobenzaprine) 10 Mg Tablet 10 MG PO DAILY PRN PRN Spasm ( Reported) Escitalopram Oxalate (Lexapro) 20 Mg Tablet 20 MG PO DAILY (Reported) Lansoprazole (Lansoprazole) 30 Mg Capsule.dr 30 MG PO BID (Reported) Levothyroxine (Levothyroxine) 125 Mcg Tablet 125 MCG PO DAILY (Reported) Naratriptan (Naratriptan) 2.5 Mg Tablet 2.5 MG PO PRN (Reported) MR IN 4H PRN Nortriptyline (Nortriptyline) 75 Mg Capsule 75 MG PO HS PRN PRN PRN (Reported) [place]-3/Dha/Epa/Fish Oil (Fish Oil 1,000 mg Softgel) 1 Each Capsule 6 EACH PO DAILY (Reported) Simvastatin (Simvastatin) 20 Mg Tablet 20 MG PO HS (Reported) oxyCODONE-Acetaminophen 10-325 mg (oxyCODONE-Acetaminophen 10-325 mg) 1 Each Tablet 1-2 TABLET PO Q4-6H PRN PRN For Pain (Reported) Discharge Medications: Prescribed during the patient's preoperative appointment. Additional Information We are requesting documented medical clearance from the Hospitalist team prior to discharge. Attending Statement: All documentation reviewed & orders authorized by Jory Rollins Scott PA-C Sep 22, 2016 10:13
--- NOTE | 2016-09-22 11:00 | PCM.PNMED ---
Subjective Date of Service Sep 22, 2016 Subjective pt had mild episode of hypoxia, SpO2 down to mid 80%s per patient, improved with O2 had mild band like chest tightness as well, in AM, pt denied SOB, chest pain, palpitation, has mild lightheadedness. no cough, sputum, diarrhea, dysuria. sore throat. As per , pt has been anxious throughout. Surgically stable per randy Fragoso. dexa will be stopped pt stated that her brother had blood clots in her legs, traveled to lungs. pt denied any hx of blood clots Exam Vital Signs Vital Sign - Last Date Time Temp Pulse Resp B/P Pulse Ox O2 Delivery O2 Flow Rate FiO2 09/22/16 04:24 36.6 113 18 145/87 96 Room Air 09/21/16 14:10 2.50 Intake and Output 09/21/16 09/21/16 09/22/16 Cumulative From/Thru 15:00 23:00 07:00 09/09/16 15:07 - 09/22/16 06:04 Intake Total 1250 ml 480 ml 2341 ml 4071 ml Output Total 95 ml 20 ml 3630 ml 3745 ml Balance 1155 ml 460 ml -1289 ml 326 ml Intake Oral 480 ml 800 ml 1280 ml IV Total 1250 ml 1541 ml 2791 ml Output Urine Total 3600 ml 3600 ml Drainage Total 20 ml 30 ml 50 ml Estimated Blood Loss 95 ml 95 ml # Voids 1 4 5 # Bowel Movements 0 0 Exam NAD, comfortably laying down on the bed no JVD, MMM, no LAD regular tachycardic, nl s1, s2 no mrg CTAB, no w,c S,ND,NT,normoactive BS+ warm, no edema, pulses 2/2 IVs and Medications Medications Reviewed: Medications were reviewed in detail Lab and Diagnostics Result Diagram: 09/21/16210709/21/162107 Assessment & Plan 51-year-old female status post cervical spine surgery, hospitalist ashwin consulted for tachycardia #tachycardia, POA, pt already developed tachycardia prior to surgery, likely multifactorial: most likely mild hyperthroid state despite normal FT4,?probable infection with high WBC with Neut dominant, baseline anxiety disorder, PE given acute postop, being highest risks of VTE, FHx of VTE as well. ?probable minor GIB although it seems it's from hemorrhoid, not acute. h/h seemed stable w/o anemia. unlikely primary cardiac given ST on EKG. no prior cardiac dz, age, no other risks factors,recent unremarkable. TTE. -continue telemetry, serial EKG if pt is symptomatic, repeat TTE -will decrease LT4 100mcg tomorrow to see if it helps -CTA PE protocol, it seems -trends h/h tomorrow AM -monitor anxiety sx, would try additional small dose of benzo if needed. -repeat CBC today, get procalcitonin, trends faiza after dexa stopped today Hospitalist service will continue to follow, if pt remains stable until tomorrow w/o etiologies being found, will likely d/c tomorrow home. Please feel free to reach if you have any questions or concern. VTE Mechanical Devices: Intermittant Pneumatic CD Resuscitation Status: CPR: Attempt Resuscitation Time spent 35min Kal Dasilva MD Sep 22, 2016 11:00 -Recommend continued monitoring, if patient develops chest pain or acute shortness of breath CT chest angiogram could be reconsidered. 2. Acquired Hypothyroidism, present on admission, well controlled -Patient developed hypothyroidism after delivery of her third child. She had been on a dose of 150 g levothyroxine which was decreased to 125 one month ago. -Current labs are use are TSH 0.592, free T4 1.13 -Though these values are in the normal range we recommend continued outpatient follow-up as dose may need to be further decreased with the goal of TSH closer to the upper limit of normal and free T4 closer to the lower limit of normal for better heart rate control. 3. Leukocytosis, acute -Laboratory evaluation revealed an elevated white blood cell count likely secondary to surgery and dexamethasone -Recommend recheck prior to departure to assure this is down trending as expected. Thank you for the opportunity to consult on this case. VTE Mechanical Devices: Intermittant Pneumatic CD Resuscitation Status: CPR: Attempt Resuscitation Time spent 35min Kal Dasilva MD Sep 22, 2016 11:00
--- NOTE | 2016-09-22 12:03 | NUR ---
tachycardia HR continues to sustain 120s ST, rate has not dropped below 120 this shift yet
[2016-09-22 12:29] LABS: BASOPHILS % (AUTO) 0.1 % (0-3); EOSINOPHILS % (AUTO) 0 % (0-5); MONOCYTES % (AUTO) 6.7 % (4-12); Mean Corpuscular Hemoglobin 28.1 pg (27.0-35.0); Mean Corpuscular Volume 86.9 fL (81-100); NEUTROPHILS % (AUTO) 87.8 % (40-74); Platelet Count 247 bil/L (150-400)
[2016-09-22 13:49] VITALS: BP 115/67; PULSE 125; RESP 17; O2SAT 95
--- NOTE | 2016-09-22 15:46 | DRSVH ---
PROCEDURE: CT ANGIO CHEST PULMONARY EMBOLISM ([id number]) INDICATIONS: rule out PE TECHNIQUE: After the administration of intravenous contrast, 2 mm thick sections acquired from the pulmonary api alea to the posterior costophrenic angles. 3-dimensional maximum intensity projection (MIP) coronal a nd sagittal reformats were then acquired through the thorax. For radiation dose reduction, the follo wing was used: automated exposure control, adjustment of mA and/or kV according to patient size. COMPARISON: None. FINDINGS: Image quality: Excellent. Pulmonary arteries: Pulmonary arteries are normal in size, and demonstrate no intraluminal filling d efects to suggest central pulmonary embolism. Lungs and pleura: The patient is status post right upper lobectomy. No acute air space opacities. Pinky telike atelectasis is present at the left lung base. No pleural effusion or pneumothorax. Mediastinum: Heart size is normal, without pericardial effusion. No mediastinal or hilar adenopathy . Thoracic aorta is normal in caliber and enhancement. Esophagus is normal in caliber, without hiat al hernia. Bones and chest wall: Cervical fixation hardware is partially visualized and is unremarkable. No federica picious bony lesions. Ribs and thoracic spine appear intact throughout. Thyroid gland is poorly jorge racterized from. No axillary or supraclavicular adenopathy. Abdomen: Visualized upper abdominal solid organs appear normal in the early arterial phase of enhanc ement. IMPRESSION: 1. No acute pulmonary embolus. 2. Postsurgical change. Dictated by: Sivan Lynn M.D. on 09/22/2016 at 15:36 Approved by: Sivan Lynn M.D. on 09/22/2016 at 15:45
[2016-09-22 17:23] VITALS: BP 136/84; PULSE 112; RESP 16; O2SAT 94
[2016-09-22 19:38] VITALS: BP 146/82; PULSE 116; RESP 16; O2SAT 95
[2016-09-22 23:47] VITALS: BP 132/81; PULSE 109; RESP 18; O2SAT 96
[2016-09-23] MEDS: Lactated Ringer's 1,000 ML IV SCH ×2 (03:12→11:12)
--- NOTE | 2016-09-23 05:08 | NUR ---
Tachycardia/mobility Pt HR remains 103 - 118 this shift. Asymptomatic. Pt ambulating to BR and doing well. She stated she made a mistake and bent forward forgetting the surgeon had told her not too and she became dizzy/lightheaded and clammy. Resolved quickly.
[2016-09-23 05:24] VITALS: BP 130/84; PULSE 109; RESP 18; O2SAT 95
[2016-09-23] MEDS: Acetaminophen IV 1,000 MG in IV Premix 1 EACH IV SCH ×2 (05:52→13:35)
[2016-09-23 06:27] VITALS: PULSE 114
[2016-09-23] MEDS: Benzocaine-Menthol Lozenge 2/Pkg PO PRN (06:33)
[2016-09-23 07:01] LABS: BASOPHILS % (AUTO) 0.1 % (0-3); EOSINOPHILS % (AUTO) 0 % (0-5); Mean Corpuscular Hemoglobin 27.8 pg (27.0-35.0); Mean Corpuscular Volume 88.1 fL (81-100); NEUTROPHILS % (AUTO) 84.8 % (40-74); Platelet Count 226 bil/L (150-400)
[2016-09-23 07:28] LABS: Magnesium 1.8 mg/dL (1.6-2.6); Phosphorus 2.5 mg/dL (2.5-4.9)
[2016-09-23] MEDS: Omega-3 Fatty Acids 1,000 mg Capsule PO SCH (08:30)
[2016-09-23] MEDS: BusPIRone 15 mg Dividose Tablet PO SCH (09:50)
[2016-09-23] MEDS: Pantoprazole 40 mg ER24 Tablet PO SCH (09:50)
[2016-09-23] MEDS: Senna-Docusate 8.6-50 mg Tablet PO SCH (09:51)
[2016-09-23 10:02] VITALS: BP 137/81; PULSE 108; RESP 19; O2SAT 94
[2016-09-23] MEDS ORDERED: LEVO100T6 PO (10:27)
--- NOTE | 2016-09-23 10:49 | NUR ---
PER KHADIJAH SANTANA'S REQ, SCHEDULED PCP APT WITH DR FERRELL IN [place] FOR OCTOBER 01 9AM. FAXED CLINICALS TO DR FERRELL'S OFFICE AT [phone]. UR SPECIALIST TO ADVISE PT OF APT TIME.
--- NOTE | 2016-09-23 12:03 | NUR ---
Social Work- Brief Note Data: EMR reviewed. Pt is on day two of hospitalization for cervical radiculopathy. Pt's insurance is [employer] and PCP is MD Hammer in [place]. SW spoke with pt regarding follow up apointment with MD Hammer on October 01 as well as discharge plan, SW role explained. Pt to discharge today. Pt resides in [place] with family where she remains independent with ADLs. Pt has no HH or SNF history. Pt uses no DME and drives. Pt knowledgeable about DPOA paperwork and declined SW providing paperwork. Pt to discharge home with family to transport via POV. No anticipated discharge needs. Assessment: Pt who is independent at base. Plan: Pt to discharge home with follow up appointment at PCP Dr. Hammer in [place]. Pt's family to transport via POV. No anticipated discharge needs. Mary Ward, AGILE JAVA DEVELOPER
--- NOTE | 2016-09-23 12:32 | NUR ---
Social Work-Readiness for Discharge Data: EMR reviewed. Pt is on day two of hospitalization for cervical radiculopathy. Pt to discharge later today. Pt to discharge home with family to transport via POV. No anticipated discharge needs. Assessment: Pt who is independent at base. Plan: Pt to discharge home with follow up appointment at PCP Dr. Hammer in [place]. Pt's family to transport via POV. No anticipated discharge needs. Mary Ward, WIRELESS SALES REPRESENTATIVE
[2016-09-23 13:46] VITALS: BP 124/66; PULSE 114; RESP 17; O2SAT 96
--- NOTE | 2016-09-23 13:47 | NUR ---
Social Work-Discharge Data: EMR reviewed. Pt is on day two of hospitalization for cervical radiculopathy. Pt to discharge today. Pt to discharge home with family to transport via POV. No discharge needs. Assessment: Pt who is independent at base. Plan: Pt to discharge home with follow up appointment at PCP Dr. Hammer in [place]. Pt's family to transport via POV. No discharge needs. Mary Ward ASSURANCE OFFICER
--- NOTE | 2016-09-23 15:18 | PCM.PNMED ---
Subjective Date of Service Sep 23, 2016 Subjective pt remained asymptomatic. Exam Vital Signs Vital Sign - Last Date Time Temp Pulse Resp B/P Pulse Ox O2 Delivery O2 Flow Rate FiO2 09/23/16 10:02 36.7 108 19 137/81 94 Room Air 09/21/16 14:10 2.50 Intake and Output 09/22/16 09/22/16 09/23/16 Cumulative From/Thru 15:00 23:00 07:00 09/09/16 15:07 - 09/23/16 06:44 Intake Total 1400 ml 1839 ml 7310 ml Output Total 700 ml 1150 ml 5595 ml Balance 700 ml 689 ml 1715 ml Intake Oral 1400 ml 1600 ml 4280 ml IV Total 239 ml 3030 ml Output Urine Total 700 ml 1100 ml 5400 ml Drainage Total 50 ml 100 ml Estimated Blood Loss 95 ml # Voids 5 # Bowel Movements 0 0 Exam NAD, comfortably laying down on the bed no JVD, MMM, no LAD regular tachycardic, nl s1, s2 no mrg CTAB, no w,c S,ND,NT,normoactive BS+ warm, no edema, pulses 2/2 IVs and Medications Medications Reviewed: Medications were reviewed in detail Lab and Diagnostics Result Diagram: 09/23/16 0630 09/23/16 0630 X-Rays, CTs and MRIs PROCEDURE: CT ANGIO CHEST PULMONARY EMBOLISM ([id number]) INDICATIONS: rule out PE TECHNIQUE: After the administration of intravenous contrast, 2 mm thick sections acquired from the pulmonary apices to the posterior costophrenic angles. 3-dimensional maximum intensity projection (MIP) coronal and sagittal reformats were then acquired through the thorax. For radiation dose reduction, the following was used: automated exposure control, adjustment of mA and/or kV according to patient size. COMPARISON: None. FINDINGS: Image quality: Excellent. Pulmonary arteries: Pulmonary arteries are normal in size, and demonstrate no intraluminal filling defects to suggest central pulmonary embolism. Lungs and pleura: The patient is status post right upper lobectomy. No acute air space opacities. Platelike atelectasis is present at the left lung base. No pleural effusion or pneumothorax. Mediastinum: Heart size is normal, without pericardial effusion. No mediastinal or hilar adenopathy. Thoracic aorta is normal in caliber and enhancement. Esophagus is normal in caliber, without hiatal hernia. Bones and chest wall: Cervical fixation hardware is partially visualized and is unremarkable. No suspicious bony lesions. Ribs and thoracic spine appear intact throughout. Thyroid gland is poorly characterized from. No axillary or supraclavicular adenopathy. Abdomen: Visualized upper abdominal solid organs appear normal in the early arterial phase of enhancement. IMPRESSION: 1. No acute pulmonary embolus. 2. Postsurgical change. Dictated by: Sivan Lynn M.D. on 09/22/2016 at 15:36 Approved by: Sivan Lynn M.D. on 09/22/2016 at 15:45 Assessment & Plan 51-year-old female status post cervical spine surgery, hospitalist servce consulted for tachycardia #tachycardia, it is still unclear why pt is still tachcardic, CTA negative for PE. Telemetry didn't show any ventricular arrhythmias, remained in sinus tachycardia. procalcitonin is essentially unremarkable, pt remained afebrile, denied any signs of infection. labs showed marked leukocytosis. However, given unremarkable presentation, acute post-op course, high dose dexamethasone, wbc can be elevated. Given no signs infection, patient would not likely benefit from antibiotics. Given her lower-normal TSH, 100 g of levothyroxine was recommended and repeat CBC in a week in the clinic to trends wbc. Patient was noted to have nocturnal hypoxia likely due to undiagnosed CHARAN, which could potentially drive tachycardia, recommended sleep study, wt reduction. Thank you for consult. Hospitalist service will sign off. VTE Mechanical Devices: Intermittant Pneumatic CD Resuscitation Status: CPR: Attempt Resuscitation Time spent 35min Kal Dasilva MD Sep 23, 2016 10:17
--- NOTE | 2016-09-23 18:17 | NUR ---
Discharge, ORVILLE Removal Patient met criteria for ORVILLE drain removal. ORVILLE drain removed without incident. Orders for discharge were received. Patient met criteria for discharge as outlined by providers. Patient agreeable to discharge. Patient ORVILLE drain removal site dressing clean, dry and intact and surgical dressing changed and dressed as ordered. Patient given information regarding her diagnosis, signs and symptoms to be aware of, follow up instructions, script for new medication, information on medications and usage, cervical collar instruction and information mobility and activity restrictions. The patient signified understanding of this information and her asymptomatic IVs were removed intact. The patient was then dressed in her own clothing,gathered her belongings and ambulated into a wheelchair which took her to an awaiting private family vehicle. At the time of discharge the patient was alert and oriented, surgical dressings clean dry and intact and pain within a tolerable level. Patient reminded to follow up with PCP regarding elevated WBCs, which surgical team and hospitalist team are aware of, along with tachycardia.
== END 2016-09-23 18:10 | disposition home or self-care (01) | DRG 472 ==
LOC: SAS 05:59 → OSC 13:20
PROVIDERS: ADMIT Neurological Surgery; ATTEND Neurological Surgery
PROC: 0RG20A0 Fusion of 2 or more Cervical Vertebral Joints with Interbody Fusion Device, Anterior Approach, Anterior Column, Open Approach (ICD-10-PCS; 2016-09-21)
PROC: 0QB20ZZ Excision of Right Pelvic Bone, Open Approach (ICD-10-PCS; 2016-09-21)
PROC: 0RB30ZZ Excision of Cervical Vertebral Disc, Open Approach (ICD-10-PCS; principal; 2016-09-21 07:30)
DX: M47.22 Other spondylosis with radiculopathy, cervical region (principal); Z68.42 Body mass index [BMI] 45.0-49.9, adult; M48.02 Spinal stenosis, cervical region; E03.9 Hypothyroidism, unspecified; E66.01 Morbid (severe) obesity due to excess calories; R00.0 Tachycardia, unspecified; F41.8 Other specified anxiety disorders